=== PATIENT | female | born 1945 | race Caucasian/White ===

== ENCOUNTER 2022-04-26 16:32 | Emergency (ER) | payer MEDICARE, OTHER | END 2022-04-26 18:04 | disposition home or self-care (01) | LOC: MW.ED 16:32 | DX: L30.9 Dermatitis, unspecified (principal); A46 Erysipelas; E78.00 Pure hypercholesterolemia, unspecified; I10 Essential (primary) hypertension; F17.210 Nicotine dependence, cigarettes, uncomplicated; Z88.8 Allergy status to other drugs, medicaments and biological substances; Z79.82 Long term (current) use of aspirin; Z79.899 Other long term (current) drug therapy | CPT/HCPCS: 99283 ==